=== PATIENT | female | born 1945 | race African-American/Black ===

== ENCOUNTER 2019-12-25 08:59 | Observation (INO) ==
[2019-12-25 09:55] LABS: Basophils % 0.3 % (0.0-0.8); Eosinophils % 0.5 % (0.00-10.9); Hematocrit 39.5 VOL% (35.7-47.0); Hemoglobin 12.9 GM/DL (12.0-16.0); Immature Granulocytes % 0.5 %; Immature Granulocytes Absolute 0.02 #; Lymphocytes # 1.8 10*3/uL (1.4-4.0); Lymphocytes % 44.9 % (21.3-54.2); Mean Corpuscular HGB Conc 32.7 GM/DL (32-36); Mean Corpuscular Volume 85.7 FL (87-102); Mean Platelet Volume 8.5 FL (9.6-12.0); Monocytes % 11.2 % (1.7-12.7); Neutrophils % 42.6 % (38.7-73.9); Platelet Count 212 T/CUMM (130-400); Red Blood Count 4.61 MC/CUMM (3.8-5.5); Red Cell Distribution Width 13.3 % (9.3-17.3); White Blood Count 3.9 T/CUMM (4-12)
[2019-12-25 10:12] LABS: Albumin 3.7 G/DL (3.4-5.0); Bilirubin,Total 0.7 MG/DL (0.2-1.0); Calcium 9.8 MG/DL (8.5-10.1); Osmolality,Calculated 271.1 MOS/KG (273-304); Total Protein 8.6 G/DL (6.4-8.3)
[2019-12-25 10:44] LABS: Apearance,Urine CLEAR (Clear); Bilirubin,Urine Negative (Negative); Blood, Urine Negative (Negative); Glucose,Urine (UA) Negative (Negative); Hyaline Casts,Urine 7 /LPF (0-3); Ketones,Urine 5 mg/dL (Negative); Mucus,Urine Few /LPF (Occasional); Nitrite,Urine Negative (Negative); Protein,Urine 30 MG/DL; RBC,Urine 2 /HPF (0-4); Squamous Epithelial Cell,Urine Few /HPF (0-10); Transitional Epi Cells,Urine Occasional /HPF (<1); Urine Color Amber (Yellow); Urine Urobilinogen < 2.0 EU/DL (0.2-1.0); WBC,Urine 2 /HPF (0-6)
[2019-12-25] MEDS ORDERED: CLINDAMYCIN INJ 600 MG in PREMIX 1 EACH IV STA (11:06)
[2019-12-25] MEDS ORDERED: LEVOFLOXACIN INJ 500 MG in PREMIX 1 EACH IV STA (11:06)
[2019-12-25] MEDS ORDERED: LEVOFLOXACIN INJ 0 ML IV ONE (11:59)
[2019-12-25] MEDS ORDERED: POTASSIUM CHLORIDE RIDER 10 MEQ in PREMIX 1 EACH IV PRN (12:20)
[2019-12-25] MEDS ORDERED: BISACODYL 5 MG TABLET PO PRN (12:20)
[2019-12-25] MEDS ORDERED: MAGNESIUM SULF RIDER 2 GM in PREMIX 1 EACH IV PRN (12:20)
[2019-12-25] MEDS ORDERED: ONDANSETRON 4 MG/2 ML VIAL IV PRN (12:20)
[2019-12-25] MEDS ORDERED: MAGNESIUM SULF RIDER 4 GM in PREMIX 1 EACH IV PRN (12:20)
[2019-12-25] MEDS ORDERED: PROMETHAZINE 25 MG/1 ML VIAL IM PRN (12:20)
[2019-12-25] MEDS: SODIUM CHLORIDE 0.9% 1,000 ML IV SCH (15:16)
[2019-12-25] MEDS: metroNIDAZOLE INJ 500 MG in PREMIX 1 EACH IV SCH (15:16)
[2019-12-25] MEDS: ENOXAPARIN 40 MG/0.4 ML SYRINGE SUBCUT SCH (15:17)
[2019-12-25] MEDS ORDERED: ALUMINUM/MAGNES/SIMETH MAX STR 30 ML UDCUP PO PRN (23:51)
[2019-12-26] MEDS: metroNIDAZOLE INJ 500 MG in PREMIX 1 EACH IV SCH ×4 (00:03→17:44)
[2019-12-26] MEDS: SODIUM CHLORIDE 0.9% 1,000 ML IV SCH (05:49)
[2019-12-26 06:20] LABS: Basophils % 0.4 % (0.0-0.8); Eosinophils % 0.4 % (0.00-10.9); Hemoglobin 11.1 GM/DL (12.0-16.0); Immature Granulocytes % 0.4 %; Immature Granulocytes Absolute 0.01 #; Lymphocytes # 1.3 10*3/uL (1.4-4.0); Mean Corpuscular HGB Conc 32.6 GM/DL (32-36); Mean Corpuscular Volume 86.1 FL (87-102); Monocytes % 16.5 % (1.7-12.7); Neutrophils % 35.3 % (38.7-73.9); Platelet Count 195 T/CUMM (130-400); Red Blood Count 3.95 MC/CUMM (3.8-5.5); Red Cell Distribution Width 13.3 % (9.3-17.3); White Blood Count 2.9 T/CUMM (4-12)
[2019-12-26 06:47] LABS: Lymphocytes 46 % (20-55); Platelet Estimate Adequate; Segmented Neutrophils 44 % (50-85); Total Cells Counted 100
[2019-12-26 06:48] LABS: Hypochromasia 1+
[2019-12-26] MEDS: CIPROFLOXACIN INJ 400 MG in PREMIX 1 EACH IV SCH ×2 (08:40→21:57)
[2019-12-26] MEDS: ENOXAPARIN 40 MG/0.4 ML SYRINGE SUBCUT SCH (08:40)
[2019-12-26] MEDS: POLYETHYLENE GLYCOL POWDER 17 GM PACK PO SCH ×2 (12:41→21:57)
[2019-12-26] MEDS ORDERED: ALBUTEROL 2.5 MG/3 ML NEB RESP TX PRN (13:03)
[2019-12-26] MEDS ORDERED: ZALEPLON 5 MG CAPSULE PO PRN (19:32)
[2019-12-27] MEDS: SODIUM CHLORIDE 0.9% 1,000 ML IV SCH ×2 (01:27→03:50)
[2019-12-27] MEDS: metroNIDAZOLE INJ 500 MG in PREMIX 1 EACH IV SCH ×3 (01:27→13:21)
[2019-12-27 07:17] LABS: Calcium 8.9 MG/DL (8.5-10.1); Osmolality,Calculated 279.3 MOS/KG (273-304)
[2019-12-27] MEDS: CIPROFLOXACIN INJ 400 MG in PREMIX 1 EACH IV SCH (09:08)
[2019-12-27] MEDS: ENOXAPARIN 40 MG/0.4 ML SYRINGE SUBCUT SCH (09:10)
[2019-12-27] MEDS: POLYETHYLENE GLYCOL POWDER 17 GM PACK PO SCH (09:10)
[2019-12-27 11:17] LABS: Basophils % 0.7 % (0.0-0.8); Eosinophils % 0.7 % (0.00-10.9); Hematocrit 33.4 VOL% (35.7-47.0); Immature Granulocytes % 0.3 %; Immature Granulocytes Absolute 0.01 #; Lymphocytes # 1.3 10*3/uL (1.4-4.0); Lymphocytes % 43.4 % (21.3-54.2); Mean Corpuscular HGB Conc 32.9 GM/DL (32-36); Mean Corpuscular Volume 85.6 FL (87-102); Mean Platelet Volume 8.7 FL (9.6-12.0); Monocytes % 14.1 % (1.7-12.7); Neutrophils % 40.8 % (38.7-73.9); Platelet Count 206 T/CUMM (130-400); Red Cell Distribution Width 13.4 % (9.3-17.3); White Blood Count 2.9 T/CUMM (4-12)
[2019-12-27 12:38] VITALS: BP 134/67
[2019-12-27 13:28] LABS: Hypochromasia Slight
[2019-12-27 13:29] LABS: Anisocytosis Slight; Platelet Estimate Adequate
== END 2019-12-27 14:04 | disposition home or self-care (01) ==
LOC: N.EDINP 08:59 → N.ED 08:59 → N.2E 13:57
PROVIDERS: ADMIT Internal Medicine; ATTEND Internal Medicine

== ENCOUNTER 2020-02-02 09:28 | Inpatient (IN) ==
[2020-02-02] MEDS ORDERED: ONDANSETRON 4 MG/2 ML VIAL IV STA (09:52)
[2020-02-02] MEDS ORDERED: PANTOPRAZOLE 40 MG VIAL IV STA (09:52)
[2020-02-02] MEDS ORDERED: SODIUM CHLORIDE 0.9% 500 ML IV STA (09:52)
[2020-02-02] MEDS ORDERED: KETOROLAC 30 MG/1 ML VIAL IV STA (09:54)
[2020-02-02] MEDS ORDERED: MEPERIDINE 25 MG/1 ML VIAL IV STA (09:56)
[2020-02-02 10:09] LABS: Basophils % 0.2 % (0.0-0.8); Eosinophils % 0.1 % (0.00-10.9); Hemoglobin 12.7 GM/DL (12.0-16.0); Immature Granulocytes % 0.4 %; Immature Granulocytes Absolute 0.03 #; Lymphocytes # 2.1 10*3/uL (1.4-4.0); Lymphocytes % 24.3 % (21.3-54.2); Mean Corpuscular HGB Conc 32.6 GM/DL (32-36); Mean Corpuscular Volume 85.5 FL (87-102); Mean Platelet Volume 8.5 FL (9.6-12.0); Monocytes % 10.1 % (1.7-12.7); Neutrophils % 64.9 % (38.7-73.9); Platelet Count 209 T/CUMM (130-400); Red Blood Count 4.56 MC/CUMM (3.8-5.5); Red Cell Distribution Width 13.3 % (9.3-17.3); White Blood Count 8.5 T/CUMM (4-12)
[2020-02-02 10:35] LABS: Albumin 3.9 G/DL (3.4-5.0); Bilirubin,Total 0.8 MG/DL (0.2-1.0); Calcium 9.4 MG/DL (8.5-10.1); Osmolality,Calculated 272.1 MOS/KG (273-304); Total Protein 8.4 G/DL (6.4-8.3)
[2020-02-02] MEDS ORDERED: VANCOMYCIN INJ 1,000 MG in SODIUM CHLORIDE 0.9% 250 ML IV STA (11:04)
[2020-02-02] MEDS ORDERED: MAGNESIUM SULF RIDER 4 GM in PREMIX 1 EACH IV PRN (11:49)
[2020-02-02] MEDS ORDERED: hydrALAZINE 20 MG/1 ML VIAL IV PRN (11:49)
[2020-02-02] MEDS ORDERED: DOCUSATE SODIUM 100 MG CAPSULE PO PRN (11:49)
[2020-02-02] MEDS ORDERED: ZALEPLON 5 MG CAPSULE PO PRN (11:49)
[2020-02-02] MEDS ORDERED: GLUCAGON 1 MG VIAL IM PRN (11:49)
[2020-02-02] MEDS ORDERED: MAGNESIUM SULF RIDER 2 GM in PREMIX 1 EACH IV PRN (11:49)
[2020-02-02] MEDS ORDERED: DEXTROSE 10% 250 ML BAG IV PRN (11:49)
[2020-02-02] MEDS ORDERED: BUDESONIDE/FORMOTEROL 160-4.5 INHALER 6 GM INH PRN (12:19)
[2020-02-02] MEDS ORDERED: POLYETHYLENE GLYCOL POWDER 17 GM PACK PO PRN (12:19)
[2020-02-02] MEDS ORDERED: hydroCHLOROthiazide 25 MG TABLET PO PRN (12:19)
[2020-02-02] MEDS: ALBUTEROL 2.5 MG/3 ML NEB RESP TX SCH ×2 (13:53→20:00)
[2020-02-02] MEDS: DEXTROSE 5% NACL 0.9% 1,000 ML IV SCH (15:16)
[2020-02-02] MEDS: ENOXAPARIN 40 MG/0.4 ML SYRINGE SUBCUT SCH (15:19)
[2020-02-02] MEDS: MEROPENEM 500 MG in SODIUM CHLORIDE 0.9% 100 ML IV SCH ×2 (15:19→20:55)
[2020-02-02] MEDS ORDERED: PANTOPRAZOLE 40 MG TABLET PO SCH (16:30)
[2020-02-03] MEDS: ALBUTEROL 2.5 MG/3 ML NEB RESP TX SCH ×4 (00:30→19:34)
[2020-02-03] MEDS: DEXTROSE 5% NACL 0.9% 1,000 ML IV SCH ×3 (02:28→18:31)
[2020-02-03] MEDS: MEROPENEM 500 MG in SODIUM CHLORIDE 0.9% 100 ML IV SCH ×4 (02:30→20:34)
[2020-02-03] MEDS: MORPHINE 4 MG/1 ML VIAL IV PRN ×2 (02:33→07:26)
[2020-02-03 05:08] LABS: Basophils % 0.2 % (0.0-0.8); Eosinophils % 0.5 % (0.00-10.9); Hematocrit 32.5 VOL% (35.7-47.0); Hemoglobin 10.3 GM/DL (12.0-16.0); Immature Granulocytes % 0.2 %; Immature Granulocytes Absolute 0.01 #; Lymphocytes # 1.1 10*3/uL (1.4-4.0); Lymphocytes % 26.3 % (21.3-54.2); Mean Corpuscular HGB Conc 31.7 GM/DL (32-36); Mean Corpuscular Volume 86.2 FL (87-102); Mean Platelet Volume 8.9 FL (9.6-12.0); Monocytes % 10.9 % (1.7-12.7); Neutrophils % 61.9 % (38.7-73.9); Platelet Count 187 T/CUMM (130-400); Red Blood Count 3.77 MC/CUMM (3.8-5.5); Red Cell Distribution Width 13.5 % (9.3-17.3); White Blood Count 4.3 T/CUMM (4-12)
[2020-02-03 05:33] LABS: Calcium 8.8 MG/DL (8.5-10.1); Osmolality,Calculated 281.3 MOS/KG (273-304)
[2020-02-03] MEDS: ASPIRIN EC 81 MG TABLET PO SCH (08:08)
[2020-02-03] MEDS: POTASSIUM CHLORIDE 20 MEQ TABLET PO SCH (08:08)
[2020-02-03] MEDS: PANTOPRAZOLE 40 MG VIAL IV SCH (08:08)
[2020-02-03] MEDS: ONDANSETRON 4 MG/2 ML VIAL IV PRN (08:31)
[2020-02-03] MEDS: amLODIPine 10 MG TABLET PO SCH (08:31)
[2020-02-03] MEDS: ENOXAPARIN 40 MG/0.4 ML SYRINGE SUBCUT SCH (12:10)
[2020-02-03] MEDS: SIMETHICONE CHEW 125 MG TABLET PO PRN (14:38)
[2020-02-04] MEDS: ALBUTEROL 2.5 MG/3 ML NEB RESP TX SCH ×4 (00:55→19:30)
[2020-02-04] MEDS: MEROPENEM 500 MG in SODIUM CHLORIDE 0.9% 100 ML IV SCH ×4 (04:27→21:33)
[2020-02-04] MEDS: MORPHINE 4 MG/1 ML VIAL IV PRN ×3 (04:30→15:13)
[2020-02-04 05:41] LABS: Basophils % 0.4 % (0.0-0.8); Eosinophils % 1.5 % (0.00-10.9); Hematocrit 31.6 VOL% (35.7-47.0); Hemoglobin 10.1 GM/DL (12.0-16.0); Immature Granulocytes % 0.4 %; Immature Granulocytes Absolute 0.01 #; Lymphocytes # 1.2 10*3/uL (1.4-4.0); Lymphocytes % 44.8 % (21.3-54.2); Mean Corpuscular Volume 86.1 FL (87-102); Mean Platelet Volume 8.7 FL (9.6-12.0); Neutrophils % 39.9 % (38.7-73.9); Platelet Count 192 T/CUMM (130-400); Red Blood Count 3.67 MC/CUMM (3.8-5.5); Red Cell Distribution Width 13.4 % (9.3-17.3); White Blood Count 2.7 T/CUMM (4-12)
[2020-02-04 06:05] LABS: Calcium 8.7 MG/DL (8.5-10.1)
[2020-02-04 06:24] LABS: Microcytosis Slight; Platelet Estimate Adequate; Polychromasia Few
[2020-02-04] MEDS: DEXTROSE 5% NACL 0.9% 1,000 ML IV SCH ×2 (09:04→21:33)
[2020-02-04] MEDS: amLODIPine 10 MG TABLET PO SCH (09:10)
[2020-02-04] MEDS: PANTOPRAZOLE 40 MG VIAL IV SCH (09:10)
[2020-02-04] MEDS: POTASSIUM CHLORIDE 20 MEQ TABLET PO SCH (09:10)
[2020-02-04] MEDS: ASPIRIN EC 81 MG TABLET PO SCH (09:10)
[2020-02-04] MEDS: ONDANSETRON 4 MG/2 ML VIAL IV PRN (09:11)
[2020-02-04] MEDS ORDERED: POTASSIUM CHLORIDE 20 MEQ TABLET PO ONE (10:37)
[2020-02-04 11:53] LABS: Apearance,Urine CLEAR (Clear); Bilirubin,Urine Negative (Negative); Blood, Urine Negative (Negative); Glucose,Urine (UA) Negative (Negative); Ketones,Urine Negative (Negative); Mucus,Urine Occasional /LPF (Occasional); Nitrite,Urine Negative (Negative); Protein,Urine Negative; RBC,Urine <1 /HPF (0-4); Squamous Epithelial Cell,Urine Occasional /HPF (0-10); Urine Color Straw (Yellow); Urine Specific Gravity 1.008 (1.001-1.035); Urine Urobilinogen < 2.0 EU/DL (0.2-1.0); WBC,Urine <1 /HPF (0-6)
[2020-02-04] MEDS: ENOXAPARIN 40 MG/0.4 ML SYRINGE SUBCUT SCH (13:08)
[2020-02-04] MEDS ORDERED: DOCUSATE SODIUM 100 MG CAPSULE PO PRN (18:01)
[2020-02-05] MEDS: ALBUTEROL 2.5 MG/3 ML NEB RESP TX SCH ×4 (00:39→20:13)
[2020-02-05] MEDS: MEROPENEM 500 MG in SODIUM CHLORIDE 0.9% 100 ML IV SCH ×4 (03:00→20:24)
[2020-02-05 05:42] LABS: Basophils % 0.4 % (0.0-0.8); Eosinophils % 1.6 % (0.00-10.9); Hematocrit 33.7 VOL% (35.7-47.0); Hemoglobin 10.9 GM/DL (12.0-16.0); Immature Granulocytes % 0.4 %; Immature Granulocytes Absolute 0.01 #; Lymphocytes # 1.4 10*3/uL (1.4-4.0); Lymphocytes % 53.9 % (21.3-54.2); Mean Corpuscular HGB Conc 32.3 GM/DL (32-36); Mean Corpuscular Volume 85.8 FL (87-102); Mean Platelet Volume 8.6 FL (9.6-12.0); Monocytes % 12.5 % (1.7-12.7); Neutrophils % 31.2 % (38.7-73.9); Platelet Count 212 T/CUMM (130-400); Red Blood Count 3.93 MC/CUMM (3.8-5.5); Red Cell Distribution Width 13.3 % (9.3-17.3); White Blood Count 2.6 T/CUMM (4-12)
[2020-02-05 06:14] LABS: Atypical Lymphocytes Few; Band Neutrophils 1 % (0-10); Eosinophils 1 % (0-10); Hypochromasia 1+; Lymphocytes 55 % (20-55); Microcytosis Slight; Segmented Neutrophils 35 % (50-85); Total Cells Counted 100
[2020-02-05 06:15] LABS: Platelet Estimate Normal
[2020-02-05] MEDS: DEXTROSE 5% NACL 0.9% 1,000 ML IV SCH ×2 (09:48→20:23)
[2020-02-05] MEDS: MORPHINE 4 MG/1 ML VIAL IV PRN ×3 (09:48→22:27)
[2020-02-05] MEDS: ONDANSETRON 4 MG/2 ML VIAL IV PRN ×2 (09:49→22:33)
[2020-02-05] MEDS: PANTOPRAZOLE 40 MG VIAL IV SCH (09:49)
[2020-02-05] MEDS: amLODIPine 10 MG TABLET PO SCH (09:50)
[2020-02-05] MEDS: ASPIRIN EC 81 MG TABLET PO SCH (09:50)
[2020-02-05] MEDS: POTASSIUM CHLORIDE 20 MEQ TABLET PO SCH (09:50)
[2020-02-05] MEDS: ENOXAPARIN 40 MG/0.4 ML SYRINGE SUBCUT SCH (15:21)
[2020-02-06] MEDS: ALBUTEROL 2.5 MG/3 ML NEB RESP TX SCH ×4 (00:54→19:37)
[2020-02-06] MEDS: MEROPENEM 500 MG in SODIUM CHLORIDE 0.9% 100 ML IV SCH ×4 (03:47→21:18)
[2020-02-06] MEDS: MORPHINE 4 MG/1 ML VIAL IV PRN ×2 (06:48→21:19)
[2020-02-06] MEDS: ONDANSETRON 4 MG/2 ML VIAL IV PRN ×2 (06:54→21:18)
[2020-02-06] MEDS: POTASSIUM CHLORIDE 20 MEQ TABLET PO SCH (08:24)
[2020-02-06] MEDS: ASPIRIN EC 81 MG TABLET PO SCH (08:24)
[2020-02-06] MEDS: amLODIPine 10 MG TABLET PO SCH (08:25)
[2020-02-06] MEDS: PANTOPRAZOLE 40 MG VIAL IV SCH (08:26)
[2020-02-06] MEDS: DEXTROSE 5% NACL 0.9% 1,000 ML IV SCH ×3 (08:52→17:50)
[2020-02-06] MEDS: ENOXAPARIN 40 MG/0.4 ML SYRINGE SUBCUT SCH (12:16)
[2020-02-07] MEDS: ALBUTEROL 2.5 MG/3 ML NEB RESP TX SCH ×4 (01:14→19:54)
[2020-02-07] MEDS: MEROPENEM 500 MG in SODIUM CHLORIDE 0.9% 100 ML IV SCH ×4 (03:39→21:04)
[2020-02-07] MEDS: DEXTROSE 5% NACL 0.9% 1,000 ML IV SCH ×3 (06:25→16:34)
[2020-02-07] MEDS: ONDANSETRON 4 MG/2 ML VIAL IV PRN ×2 (06:31→21:01)
[2020-02-07] MEDS: MORPHINE 4 MG/1 ML VIAL IV PRN ×2 (06:31→21:01)
[2020-02-07] MEDS: amLODIPine 10 MG TABLET PO SCH (08:28)
[2020-02-07] MEDS: ASPIRIN EC 81 MG TABLET PO SCH (08:28)
[2020-02-07] MEDS: PANTOPRAZOLE 40 MG VIAL IV SCH (08:28)
[2020-02-07] MEDS: POTASSIUM CHLORIDE 20 MEQ TABLET PO SCH (08:28)
[2020-02-07 08:50] LABS: Basophils % 0.5 % (0.0-0.8); Eosinophils % 1.4 % (0.00-10.9); Hematocrit 36.9 VOL% (35.7-47.0); Hemoglobin 12.1 GM/DL (12.0-16.0); Immature Granulocytes % 0.5 %; Immature Granulocytes Absolute 0.01 #; Lymphocytes # 1.1 10*3/uL (1.4-4.0); Lymphocytes % 49.1 % (21.3-54.2); Mean Corpuscular HGB Conc 32.8 GM/DL (32-36); Mean Corpuscular Volume 83.9 FL (87-102); Mean Platelet Volume 8.6 FL (9.6-12.0); Neutrophils % 36.5 % (38.7-73.9); Platelet Count 203 T/CUMM (130-400); Red Cell Distribution Width 13.4 % (9.3-17.3); White Blood Count 2.2 T/CUMM (4-12)
[2020-02-07 09:03] LABS: Calcium 9.3 MG/DL (8.5-10.1); Osmolality,Calculated 275.4 MOS/KG (273-304)
[2020-02-07 09:19] LABS: Anisocytosis 1+; Band Neutrophils 10 % (0-10); Lymphocytes 46 % (20-55); Platelet Estimate Normal; Segmented Neutrophils 32 % (50-85); Total Cells Counted 100
[2020-02-07] MEDS: ENOXAPARIN 40 MG/0.4 ML SYRINGE SUBCUT SCH (14:41)
[2020-02-08] MEDS: ALBUTEROL 2.5 MG/3 ML NEB RESP TX SCH ×4 (00:33→20:20)
[2020-02-08] MEDS: MEROPENEM 500 MG in SODIUM CHLORIDE 0.9% 100 ML IV SCH (02:43)
[2020-02-08] MEDS: DEXTROSE 5% NACL 0.9% 1,000 ML IV SCH ×4 (04:50→23:18)
[2020-02-08 05:24] LABS: Basophils % 0.5 % (0.0-0.8); Eosinophils % 1.4 % (0.00-10.9); Hematocrit 34.6 VOL% (35.7-47.0); Hemoglobin 10.9 GM/DL (12.0-16.0); Immature Granulocytes % 0.9 %; Immature Granulocytes Absolute 0.02 #; Lymphocytes # 1.2 10*3/uL (1.4-4.0); Lymphocytes % 54.5 % (21.3-54.2); Mean Corpuscular HGB Conc 31.5 GM/DL (32-36); Mean Corpuscular Volume 86.9 FL (87-102); Mean Platelet Volume 8.4 FL (9.6-12.0); Monocytes % 8.6 % (1.7-12.7); Neutrophils % 34.1 % (38.7-73.9); Platelet Count 212 T/CUMM (130-400); Red Blood Count 3.98 MC/CUMM (3.8-5.5); Red Cell Distribution Width 13.5 % (9.3-17.3); White Blood Count 2.2 T/CUMM (4-12)
[2020-02-08 05:49] LABS: Calcium 8.9 MG/DL (8.5-10.1); Osmolality,Calculated 278.1 MOS/KG (273-304)
[2020-02-08] MEDS ORDERED: POLYETHYLENE GLYCOL POWDER 17 GM PACK PO PRN (08:32)
[2020-02-08] MEDS ORDERED: FILGRASTIM-SNDZ 300 MCG/0.5 ML SYRINGE SUBCUT ONE (08:43)
[2020-02-08 08:52] LABS: Atypical Lymphocytes Few; Band Neutrophils 1 % (0-10); Lymphocytes 57 % (20-55); Platelet Estimate Normal; Segmented Neutrophils 33 % (50-85); Total Cells Counted 100
[2020-02-08 08:53] LABS: Anisocytosis Slight
[2020-02-08] MEDS: CIPROFLOXACIN 500 MG TABLET PO SCH ×2 (09:04→21:14)
[2020-02-08] MEDS: ASPIRIN EC 81 MG TABLET PO SCH (09:04)
[2020-02-08] MEDS: amLODIPine 10 MG TABLET PO SCH (09:04)
[2020-02-08] MEDS: POTASSIUM CHLORIDE 20 MEQ TABLET PO SCH (09:04)
[2020-02-08] MEDS: LACTOBACILLUS RHAMNOSUS GG CAPSULE PO SCH ×2 (09:04→21:13)
[2020-02-08] MEDS: SIMETHICONE CHEW 125 MG TABLET PO PRN ×2 (09:15→21:48)
[2020-02-08] MEDS: ENOXAPARIN 40 MG/0.4 ML SYRINGE SUBCUT SCH (14:22)
[2020-02-08] MEDS: metroNIDAZOLE 500 MG TABLET PO SCH ×2 (14:22→21:14)
[2020-02-08] MEDS: ONDANSETRON 4 MG/2 ML VIAL IV PRN (19:42)
[2020-02-08] MEDS ORDERED: ACETAMINOPHEN 500 MG TABLET PO PRN (21:25)
[2020-02-08] MEDS: IBUPROFEN 800 MG TABLET PO PRN (21:45)
[2020-02-09] MEDS: ALBUTEROL 2.5 MG/3 ML NEB RESP TX SCH ×4 (01:56→19:00)
[2020-02-09] MEDS: ONDANSETRON 4 MG/2 ML VIAL IV PRN (06:23)
[2020-02-09] MEDS: metroNIDAZOLE 500 MG TABLET PO SCH ×3 (06:31→21:28)
[2020-02-09 06:58] LABS: Albumin 3.1 G/DL (3.4-5.0); Bilirubin,Total 0.5 MG/DL (0.2-1.0); Calcium 9.2 MG/DL (8.5-10.1); Total Protein 7.1 G/DL (6.4-8.3)
[2020-02-09] MEDS: DEXTROSE 5% NACL 0.9% 1,000 ML IV SCH ×2 (09:54→21:28)
[2020-02-09] MEDS: LACTOBACILLUS RHAMNOSUS GG CAPSULE PO SCH ×2 (09:55→20:47)
[2020-02-09] MEDS: POTASSIUM CHLORIDE 20 MEQ TABLET PO SCH (09:55)
[2020-02-09] MEDS: ASPIRIN EC 81 MG TABLET PO SCH (09:55)
[2020-02-09] MEDS: amLODIPine 10 MG TABLET PO SCH (09:55)
[2020-02-09] MEDS: CIPROFLOXACIN 500 MG TABLET PO SCH ×2 (09:55→20:46)
[2020-02-09] MEDS: POTASSIUM CHLORIDE RIDER 10 MEQ in PREMIX 1 EACH IV SCH ×4 (14:52→18:54)
[2020-02-09] MEDS: ENOXAPARIN 40 MG/0.4 ML SYRINGE SUBCUT SCH (14:52)
[2020-02-09] MEDS: SIMETHICONE CHEW 125 MG TABLET PO PRN (19:01)
[2020-02-09] MEDS: IBUPROFEN 800 MG TABLET PO PRN (20:48)
[2020-02-10] MEDS: DEXTROSE 5% NACL 0.9% 1,000 ML IV SCH ×2 (00:30→10:00)
[2020-02-10] MEDS: ALBUTEROL 2.5 MG/3 ML NEB RESP TX SCH ×2 (01:29→08:32)
[2020-02-10] MEDS: metroNIDAZOLE 500 MG TABLET PO SCH ×2 (05:03→14:47)
[2020-02-10 05:45] LABS: Risk Ratio 4.07; VLDL CHOLESTEROL 27.2 MG/DL
[2020-02-10] MEDS: ONDANSETRON 4 MG/2 ML VIAL IV PRN (07:30)
[2020-02-10] MEDS ORDERED: SCOPOLAMINE 1.5 MG PATCH TRANSDERM ONE (08:26)
[2020-02-10] MEDS: LACTOBACILLUS RHAMNOSUS GG CAPSULE PO SCH (09:41)
[2020-02-10] MEDS: ASPIRIN EC 81 MG TABLET PO SCH (09:41)
[2020-02-10] MEDS: CIPROFLOXACIN 500 MG TABLET PO SCH (09:41)
[2020-02-10] MEDS: amLODIPine 10 MG TABLET PO SCH (09:42)
[2020-02-10] MEDS: POTASSIUM CHLORIDE 20 MEQ TABLET PO SCH (10:00)
[2020-02-10 11:44] VITALS: BP 139/63
[2020-02-10] MEDS: ENOXAPARIN 40 MG/0.4 ML SYRINGE SUBCUT SCH (13:00)
== END 2020-02-10 14:40 | disposition home health service (06) | DRG 392 ==
LOC: N.ED 09:28 → SUATTDRO 12:04 → N.EDINP 12:04 → N.3E 13:38
PROVIDERS: ADMIT Family Medicine; ATTEND Internal Medicine

== ENCOUNTER 2020-08-19 06:07 | Inpatient (IN) ==
[2020-08-16 11:49] LABS: Basophils % 0.4 % (0.0-0.8); Eosinophils % 0.4 % (0.00-10.9); Hematocrit 38.7 VOL% (35.7-47.0); Hemoglobin 12.9 GM/DL (12.0-16.0); Immature Granulocytes % 0.2 %; Immature Granulocytes Absolute 0.01 #; Lymphocytes # 2.7 10*3/uL (1.4-4.0); Lymphocytes % 51.4 % (21.3-54.2); Mean Corpuscular HGB Conc 33.3 GM/DL (32-36); Mean Corpuscular Volume 85.6 FL (87-102); Mean Platelet Volume 9.2 FL (9.6-12.0); Monocytes % 8.1 % (1.7-12.7); Neutrophils % 39.5 % (38.7-73.9); Platelet Count 194 T/CUMM (130-400); Red Blood Count 4.52 MC/CUMM (3.8-5.5); Red Cell Distribution Width 13.8 % (9.3-17.3); White Blood Count 5.3 T/CUMM (4-12)
[2020-08-16 12:17] LABS: Calcium 9.6 MG/DL (8.5-10.1); Osmolality,Calculated 273.7 MOS/KG (273-304)
[2020-08-16 12:26] LABS: Anisocytosis Slight; Atypical Lymphocytes Few; Band Neutrophils 4 % (0-10); Eosinophils 1 % (0-10); Lymphocytes 52 % (20-55); Platelet Estimate Normal; Segmented Neutrophils 35 % (50-85); Total Cells Counted 100
[2020-08-19] MEDS ORDERED: ERTAPENEM 1,000 MG in SODIUM CHLORIDE 0.9% 100 ML IV ONE (06:30)
[2020-08-19] MEDS: LACTATED RINGERS 1,000 ML IV SCH ×3 (07:31→16:43)
[2020-08-19] MEDS ORDERED: INDOCYANINE GREEN 25 MG VIAL IV ONE (11:10)
[2020-08-19] MEDS ORDERED: DEXAMETHASONE 4 MG/1 ML VIAL ONE ×2 (11:28→16:51)
[2020-08-19] MEDS ORDERED: LIDOCAINE 1% 5 ML VIAL ONE (11:28)
[2020-08-19] MEDS ORDERED: ROPIVACAINE 0.5% 30 ML VIAL ONE (11:28)
[2020-08-19] MEDS ORDERED: SCOPOLAMINE 1.5 MG PATCH TRANSDERM ONE (11:37)
[2020-08-19] MEDS ORDERED: GABAPENTIN 400 MG CAPSULE ONE (11:44)
[2020-08-19] MEDS ORDERED: TISSUE ADHESIVE 1 EACH APPLICATOR TOP ONE (13:15)
[2020-08-19 15:06] LABS: Bilirubin,Urine Negative (Negative); Blood, Urine Negative (Negative); Glucose,Urine (UA) Negative (Negative); Ketones,Urine Negative (Negative); Mucus,Urine Occasional /LPF (Occasional); Nitrite,Urine Negative (Negative); Protein,Urine Negative; RBC,Urine 1 /HPF (0-4); Urine Appearance CLEAR (Clear); Urine Color Straw (Yellow); Urine Specific Gravity 1.009 (1.001-1.035); Urine Urobilinogen < 2.0 EU/DL (0.2-1.0); WBC,Urine <1 /HPF (0-6)
[2020-08-19] MEDS ORDERED: HYDROmorphone 2 MG/1 ML VIAL IV PRN ×2 (16:22→16:45)
[2020-08-19] MEDS ORDERED: ePHEDrine 50 MG/ML VIAL ONE (16:32)
[2020-08-19] MEDS ORDERED: ONDANSETRON 4 MG/2 ML VIAL IV PRN (16:45)
[2020-08-19] MEDS ORDERED: MIDAZOLAM 2 MG/2 ML VIAL ONE (16:51)
[2020-08-19] MEDS ORDERED: LIDOCAINE 2% 5 ML VIAL ONE (16:51)
[2020-08-19] MEDS ORDERED: ACETAMINOPHEN 1,000 MG/100 ML VIAL IV ONE (16:51)
[2020-08-19] MEDS ORDERED: HYDROmorphone 2 MG/1 ML VIAL ONE (16:51)
[2020-08-19] MEDS ORDERED: PHENYLEPHRINE 1 MG/10 ML SYRINGE IV ONE (16:51)
[2020-08-19] MEDS ORDERED: SEVOFLURANE 1 UNIT/15 MINUTE INH ONE (16:51)
[2020-08-19] MEDS ORDERED: propofoL 200 MG/20 ML VIAL IV ONE (16:51)
[2020-08-19] MEDS ORDERED: ONDANSETRON 4 MG/2 ML VIAL ONE (16:51)
[2020-08-19] MEDS ORDERED: LACTATED RINGERS 2,000 ML IV ONE (16:52)
[2020-08-19] MEDS ORDERED: ROCURONIUM 100 MG/10 ML VIAL IV ONE (16:52)
[2020-08-19] MEDS: KETOROLAC 15 MG/1 ML VIAL IV SCH (19:30)
[2020-08-19] MEDS: ONDANSETRON 4 MG/2 ML VIAL IV PRN (20:15)
[2020-08-19] MEDS: ACETAMINOPHEN INJ 1,000 MG in PREMIX 1 EACH IV SCH (20:16)
[2020-08-20] MEDS: KETOROLAC 15 MG/1 ML VIAL IV SCH ×4 (01:24→18:43)
[2020-08-20] MEDS: LACTATED RINGERS 1,000 ML IV SCH ×6 (01:24→22:08)
[2020-08-20] MEDS: ACETAMINOPHEN INJ 1,000 MG in PREMIX 1 EACH IV SCH ×3 (01:26→14:49)
[2020-08-20 06:01] LABS: Basophils % 0.1 % (0.0-0.8); Hematocrit 32.3 VOL% (35.7-47.0); Hemoglobin 11.1 GM/DL (12.0-16.0); Immature Granulocytes % 0.3 %; Immature Granulocytes Absolute 0.02 #; Lymphocytes # 0.9 10*3/uL (1.4-4.0); Lymphocytes % 13.2 % (21.3-54.2); Mean Corpuscular HGB Conc 34.4 GM/DL (32-36); Mean Corpuscular Volume 83.2 FL (87-102); Monocytes % 5.8 % (1.7-12.7); Neutrophils % 80.6 % (38.7-73.9); Platelet Count 181 T/CUMM (130-400); Red Blood Count 3.88 MC/CUMM (3.8-5.5); Red Cell Distribution Width 13.4 % (9.3-17.3); White Blood Count 7.1 T/CUMM (4-12)
[2020-08-20 06:21] LABS: Calcium 9.5 MG/DL (8.5-10.1); Osmolality,Calculated 276.5 MOS/KG (273-304)
[2020-08-20] MEDS: ENOXAPARIN 30 MG/0.3 ML SYRINGE SUBCUT SCH (10:14)
[2020-08-20] MEDS: ONDANSETRON 4 MG/2 ML VIAL IV PRN (19:54)
[2020-08-20] MEDS ORDERED: ACETAMINOPHEN 325 MG TABLET PO PRN (23:55)
[2020-08-21] MEDS: KETOROLAC 15 MG/1 ML VIAL IV SCH ×4 (00:02→17:40)
[2020-08-21] MEDS: LACTATED RINGERS 1,000 ML IV SCH ×3 (08:55→23:00)
[2020-08-21] MEDS: ENOXAPARIN 30 MG/0.3 ML SYRINGE SUBCUT SCH (09:35)
[2020-08-21 11:52] LABS: Basophils % 0.2 % (0.0-0.8); Eosinophils % 0.5 % (0.00-10.9); Hematocrit 32.4 VOL% (35.7-47.0); Hemoglobin 10.5 GM/DL (12.0-16.0); Immature Granulocytes % 0.2 %; Immature Granulocytes Absolute 0.01 #; Lymphocytes % 47.6 % (21.3-54.2); Mean Corpuscular HGB Conc 32.4 GM/DL (32-36); Mean Platelet Volume 8.8 FL (9.6-12.0); Monocytes % 7.8 % (1.7-12.7); Neutrophils % 43.7 % (38.7-73.9); Platelet Count 185 T/CUMM (130-400); Red Blood Count 3.68 MC/CUMM (3.8-5.5); Red Cell Distribution Width 13.8 % (9.3-17.3); White Blood Count 4.1 T/CUMM (4-12)
[2020-08-21 12:18] LABS: Calcium 9.3 MG/DL (8.5-10.1); Osmolality,Calculated 279.1 MOS/KG (273-304)
[2020-08-21 12:29] LABS: Anisocytosis Slight; Band Neutrophils 3 % (0-10); Eosinophils 1 % (0-10); Lymphocytes 44 % (20-55); Platelet Estimate Normal; Segmented Neutrophils 46 % (50-85); Total Cells Counted 100
[2020-08-21] MEDS: ONDANSETRON 4 MG/2 ML VIAL IV PRN (17:40)
[2020-08-22] MEDS: KETOROLAC 15 MG/1 ML VIAL IV SCH ×4 (00:07→17:30)
[2020-08-22] MEDS: LACTATED RINGERS 1,000 ML IV SCH ×3 (04:41→15:46)
[2020-08-22] MEDS: POTASSIUM CHLORIDE 20 MEQ TABLET PO PRN ×3 (09:40→13:40)
[2020-08-22] MEDS: ENOXAPARIN 30 MG/0.3 ML SYRINGE SUBCUT SCH (09:40)
[2020-08-23] MEDS: KETOROLAC 15 MG/1 ML VIAL IV SCH ×3 (00:40→12:20)
[2020-08-23 05:29] LABS: Basophils % 0.2 % (0.0-0.8); Eosinophils # 0.1 10*3/uL (0.0-0.87); Eosinophils % 2.2 % (0.00-10.9); Hematocrit 31.5 VOL% (35.7-47.0); Hemoglobin 10.2 GM/DL (12.0-16.0); Immature Granulocytes % 0.5 %; Immature Granulocytes Absolute 0.02 #; Lymphocytes # 2.2 10*3/uL (1.4-4.0); Mean Corpuscular HGB Conc 32.4 GM/DL (32-36); Mean Corpuscular Volume 85.8 FL (87-102); Monocytes % 8.4 % (1.7-12.7); Neutrophils % 36.7 % (38.7-73.9); Platelet Count 187 T/CUMM (130-400); Red Blood Count 3.67 MC/CUMM (3.8-5.5); Red Cell Distribution Width 13.6 % (9.3-17.3); White Blood Count 4.2 T/CUMM (4-12)
[2020-08-23 05:55] LABS: Atypical Lymphocytes Few; Calcium 9.3 MG/DL (8.5-10.1); Eosinophils 5 % (0-10); Hypochromasia 1+; Lymphocytes 46 % (20-55); Microcytosis Slight; Osmolality,Calculated 281.1 MOS/KG (273-304); Platelet Estimate Adequate; Segmented Neutrophils 36 % (50-85); Total Cells Counted 100
[2020-08-23] MEDS: POTASSIUM CHLORIDE 20 MEQ TABLET PO PRN (06:21)
[2020-08-23] MEDS: ENOXAPARIN 30 MG/0.3 ML SYRINGE SUBCUT SCH (09:31)
[2020-08-23] MEDS ORDERED: POLYETHYLENE GLYCOL POWDER 17 GM PACK PO PRN (15:07)
[2020-08-23] MEDS ORDERED: BUDESONIDE/FORMOTEROL 160-4.5 INHALER 6 GM INH PRN (15:07)
[2020-08-23] MEDS ORDERED: PANTOPRAZOLE 40 MG TABLET PO SCH (16:30)
[2020-08-23 19:53] VITALS: BP 167/81
[2020-08-23] MEDS ORDERED: LACTOBACILLUS RHAMNOSUS GG CAPSULE PO SCH (21:00)
[2020-08-24] MEDS ORDERED: amLODIPine 10 MG TABLET PO SCH (09:00)
[2020-08-24] MEDS ORDERED: POTASSIUM CHLORIDE 20 MEQ TABLET PO SCH (09:00)
[2020-08-24] MEDS ORDERED: RIVAROXABAN 10 MG TABLET PO SCH (09:00)
[2020-08-24] MEDS ORDERED: ASPIRIN EC 81 MG TABLET PO SCH (09:00)
[2020-08-24] MEDS ORDERED: CETIRIZINE 10 MG TABLET PO SCH (09:00)
[2020-08-26] MEDS ORDERED: ERGOCALCIFEROL 50,000 UNIT CAPSULE PO SCH (09:00)
== END 2020-08-23 17:30 | disposition home or self-care (01) | DRG 331 ==
LOC: N.OR 06:07 → N.SDSINP 06:09 → N.3E 18:29
PROVIDERS: ADMIT Student in an Organized Health Care Education/Training Program; ATTEND Student in an Organized Health Care Education/Training Program